=== PATIENT | female | born 1985 | race Caucasian/White ===

== ENCOUNTER 2022-02-17 09:43 | Day surgery (SDC) | payer MEDICAID ==
[2022-02-16 08:15] VITALS: BMI 22.6
[~2022-02-17 09:43] MED LIST: DEXAMETHASONE SOD PHOSPHATE 4 MG/ML 1 ML VIAL IV ONE; HYDROmorphone 0.5 MG/0.5 ML SYRINGE IVP PRN; LACTATED RINGERS 1,000 ML IV SCH; MIDAZOLAM 2 MG/2 ML VIAL IV PRN; ONDANSETRON 4 MG/2 ML VIAL IVP ONE; Pre Op ABX Message 1 EACH MISC MISCELLANE ONE; SCOPOLAMINE 1 MG/72 HR PATCH TRANSDERM ONE
[2022-02-17 10:27] VITALS: TEMP 97.4
[2022-02-17] MEDS ORDERED: MIDAZOLAM 2 MG/2 ML VIAL IV ONE (10:47)
[2022-02-17] MEDS ORDERED: fentaNYL (PF) 50 MCG/ML 2 ML AMP IV ONE (10:47)
--- NOTE | 2022-02-17 12:14 | P.ANPRN ---
Procedure Note - Anesthesia - Nerve Block Performed Right Popliteal Single Time Out Performed: Yes (1046) Date of Procedure: 02/17/22 Procedure Start Time: 10:47 Procedure Stop Time: 10:51 Location of Patient: PreOp Indication: Acute Post-Operative Pain, Requested by Surgeon Specifically requested for management of pain by DrCathie: Og Collado Sedation Type: Sedate with meaningful contact maintained Preparation: Sterile Prep Position: Left Lateral Catheter: None Needle Types: Pajunk Needle Gauge: 21 Ultrasound used to visualize needle placement: Yes Ultrasound used to observe medication spread: Yes Injectate: 0.5% Ropivacaine (see comment for volume) (15cc + 10cc nacl pf) Blood Aspirated: No Pain Paresthesia on Injection Noted: No Resistance on Injection: Normal Image Stored and Saved: Yes Events: Uneventful and Well Tolerated
--- NOTE | 2022-02-17 12:15 | P.ANPRN ---
Procedure Note - Anesthesia - Nerve Block Performed Right Adductor Canal Single Time Out Performed: Yes (1046) Date of Procedure: 02/17/22 Procedure Start Time: 10:52 Procedure Stop Time: 10:56 Location of Patient: PreOp Indication: Acute Post-Operative Pain, Requested by Surgeon Specifically requested for management of pain by DrCathie: Og Collado Sedation Type: Sedate with meaningful contact maintained Preparation: Sterile Prep Position: Supine Catheter: None Needle Types: Pajunk Needle Gauge: 21 Ultrasound used to visualize needle placement: Yes Ultrasound used to observe medication spread: Yes Injectate: 0.5% Ropivacaine (see comment for volume) (15cc + 10cc nacl pf) Blood Aspirated: No Pain Paresthesia on Injection Noted: No Resistance on Injection: Normal Image Stored and Saved: Yes Events: Uneventful and Well Tolerated
[2022-02-17] MEDS ORDERED: fentaNYL (PF) 50 MCG/ML 2 ML AMP ONE (12:17)
[2022-02-17] MEDS ORDERED: ROPIVACAINE 5 MG/ML 30 ML VIAL ONE (12:17)
[2022-02-17] MEDS ORDERED: SODIUM CHLORIDE 0.9% (PF) 10 ML VIAL ONE (12:17)
[2022-02-17] MEDS ORDERED: PROPOFOL 10 MG/ML 20 ML VIAL IV ONE (12:17)
[2022-02-17] MEDS ORDERED: MIDAZOLAM 2 MG/2 ML VIAL ONE (12:17)
[2022-02-17] MEDS ORDERED: BUPIVACAINE (PF) 0.25% 30 ML VIAL SQ ONE (12:38)
[2022-02-17 13:20] VITALS: RESP 16
[2022-02-17 13:51] VITALS: BP 112/64; PULSE 73
--- NOTE | 2022-02-17 15:36 | P.OP ---
Date of Procedure: 02/17/22 Preoperative Diagnosis: 1. Plantar fasciitis right foot 2. Calcaneal spur right foot Postoperative Diagnosis: 1. Same 2. Same Procedure(s) Performed: 1. Plantar fasciotomy right foot 2. Removal of calcaneal spur right foot Anesthesia: DENNIS Surgeon: Og Collado Estimated Blood Loss (ml): 2 Pathology: none sent Condition: stable Disposition: PACU Indications for Procedure: Chronic plantar fasciitis with large calcaneal spur nonresponsive to conservative treatment Description of Procedure: Prior to the patient being brought to the operating room, anesthesia administered a nerve block on the right lower extremity. The patient was then brought into the operative room placed on table supine position. Timeout was taken to confirm correct patient identifiers, correct site of surgery, and correct procedure. When all staff in the room were in agreement with the timeout, the patient was placed under IV sedation anesthesia. A well-padded tourniquet was placed on the right midcalf. Then the right leg was prepped and draped usual manner. The right leg was exsanguinated and the tourniquet inflated to 250 mmHg. Under direct fluoroscopic visualization landmarks were made on the skin overlying the calcaneal spur. During the incision the patient reacted to the pain therefore was necessary to inject a further 10 mL of 0.25% Marcaine around the operative site. After a few minutes the procedure resumed without any incident. The incision was deepened down to the saphenous tissue careful to identify, avoid, and retract any neurovascular structures and cauterize any bleeding vessels. Blunt dissection was then carried down to level of the plantar fascia. A blunt instrument was inserted to find the most superior and inferior origins of the plantar fascia. It was noted that the plantar fascia was extremely thick. Although we are unable to accurately measure the thickness, was most likely over 10 mm thick. Once the tissue planes were established on the superior and inferior aspects of the plantar fascia a large scissors was then inserted to release the plantar fascial. This is done while holding the digits maximally dorsiflexed. Landmarks were also made on the central aspect of the calcaneus so that the resection did not past the midline. There was palpable laxity of the medial band of the plantar fascial in the arch area once it was released. Then utilizing sima tripp the calcaneal spur was identified while under direct fluoroscopy and removed. A rasp was used to smooth the area once completed. Fluoroscopy confirmed the removal the spur. The wound is then thoroughly irrigated with saline. The skin was closed with 3- 0 nylon. Dry dressings applied to the right foot and ankle. The tourniquet was released and capillary refill return to all digits of the right foot. The patient tolerated the above procedure and anesthesia well and went to recovery with vital signs stable.
== END 2022-02-17 13:43 | disposition home or self-care (01) ==
LOC: OR 09:43
PROVIDERS: ATTEND Podiatrist
DX: M72.2 Plantar fascial fibromatosis (principal); M77.31 Calcaneal spur, right foot; Z98.891 History of uterine scar from previous surgery; Z98.890 Other specified postprocedural states; Z79.899 Other long term (current) drug therapy
CPT/HCPCS: 64447; 81025; 64445; 76942; 28119; J2250; J1100; J2405; J3010; J2795; J2704